=== PATIENT | female | born 1935 | race Caucasian/White ===

== ENCOUNTER → 2023-09-26 | Outpatient (CLI) | payer MEDICARE, SELFPAY ==
--- OUTSIDE RECORDS SUMMARY | 2023-09-26 17:38 | XMS RPT_ITS | CCD ---
Author Name Unknown Address [address] [place] [address] Organization [facility] Care Team Providers Care Audio Technician Name Role Phone No, Physician Primary Care Provider Unavailabl e Hellinger Edinson BAIG Primary Care Provider EDINSON CASANOVA Referring Unavailable HELEDINSON JARAMILLO Attending Unavailable EDINSON CASANOVA Primary Care Unavailable HELLINGEREDINSON Referring Unavailable HELLINGEREDINSON Attending Unavailable EDINSON CASANOVA Primary Care Unavailable HELLINGEREDINSON Referring Unavailable HELLINGEREDINSON Attending Unavailable EDINSON CASANOVA Primary Care Unavailable HELLINGEDINSON GARDINER Referring Unavailable HELLINGEREDINSON Attending Unavailable NILSLINGEREDINSON Primary Care Unavailable Hellinger Edinson BAIG Primary Care Provider Pending Provider Unavailable Unavailable Hellinger, Ms. Edinson Rivas Attending Unavail able Pending, Provider Primary Care Unavailable Hellinger, Ms. Edinson Rivas Attending Unavail able Pending, Provider Primary Care Unavailable Hellinger, Ms. Edinson Rivas Attending Unavail able Pending, Provider Primary Care Unavailable Hellinger, Ms. Edinson Rivas Attending Unavail able Pending, Provider Primary Care Unavailable Hellinger, Ms. Edinson Rivas Attending Unavail able Pending, Provider Primary Care Unavailable Hellinger, Ms. Edinson Rivas Attending Unavail able Pending, Provider Primary Care Unavailable Hellinger, Ms. Edinson Rivas Attending Unavail able Pending, Provider Primary Care Unavailable Hellinger, Ms. Edinson Rivas Attending Unavail able Pending, Provider Primary Care Unavailable Hellinger, Ms. Edinson Rivas Attending Unavail able Pending, Provider Primary Care Unavailable Pending, Provider Primary Care Unavailable Hellinger, Ms. Edinson Rivas Attending Unavail able Pending, Provider Primary Care Unavailable Hellinger, Ms. Edinson Rivas Attending Unavail able Hellinger, Ms. Edinson Rivas Attending Unavail able Pending, Provider Primary Care Unavailable Hellinger, Ms. Edinson Rivas Attending Unavail able Pending, Provider Primary Care Unavailable Hellinger, Ms. Edinson Rivas Attending Unavail able Pending, Provider Primary Care Unavailable Hellinger, Ms. Edinson Rivas Attending Unavail able Pending, Provider Primary Care Unavailable Pending, Provider Primary Care Unavailable Hellinger, Ms. Edinson Rivas Attending Unavail able Hellinger, Ms. Edinson Rivas Attending Unavail able Pending, Provider Primary Care Unavailable Hellinger, Ms. Edinson Rivas Attending Unavail able Pending, Provider Primary Care Unavailable Hellinger Edinson BAIG Primary Care Provider EDINSON CASANOVA Primary Care Unavailable ISAAC GALLEGO Attending Unavailab le EDINSON CASANOVA Primary Care Unavailable ROSARIO MAGAÑA Attending Unavailable SIRISHA CREWS Attending Unavailable EDINSON CASANOVA Primary Care Unavailable Medications Current Medications Medication Drug Class(es) Dates Sig (Normalized) Sig (Original) ascorbic acid 226 mg / cuprous oxide 0.8 mg / dl-alpha tocopheryl acetate 200 unt / lutein 5 mg / zinc oxide 34.8 mg oral capsule (2 sources) Vitamin C Start: 1 take 1 capsule by mouth twice daily vit N-B-pbyljk-zinc-lutein 226-90-0.8-5 mg cap Take 1 capsule by mouth 2 (two) times a day . 0 08/15/2011 Active aspirin 81 mg delayed release oral tablet (4 sources) Platelet Aggregation Inhibitor, Nonsteroidal Anti-inflammator y Drug Start: 6 aspirin 81 MG EC tablet Take by mouth . 0 10/21/2005 Active atorvastatin 20 mg oral tablet (5 sources) HMG-CoA Reductase Inhibitor take 1 tablet by mouth once daily atorvastatin (LIPITOR) 20 MG tablet Take 1 (one) tablet (20 mg total) by mouth daily . 0 Active docusate sodium 100 mg oral capsule (5 sources) take 1 capsule by mouth twice daily docusate sodium (COLACE) 100 MG capsule Take 1 (one) capsule (100 mg total) by mouth 2 (two) times a day . 0 Active hydroCHLOROthiazide 25 mg oral tablet (4 sources) Thiazide Diuretic Start: 1 take 1 tablet by mouth once daily hydroCHLOROthiazide (HYDRODIURIL) 25 MG tablet Take 1 (one) tablet (25 mg total) by mouth daily . 0 01/26/2021 Active lisinopril 20 mg oral tablet (5 sources) Angiotensin Converting Enzyme Inhibitor take 1 tablet by mouth once daily lisinopriL (PRINIVIL,ZESTRIL) 20 MG tablet Take 1 (one) tablet (20 mg total) by mouth daily . 0 Active lutein 10 mg oral tablet (4 sources) Start: 0 lutein 10 mg Tab Take by mouth . 0 12/07/2009 Active melatonin 1 mg oral tablet (3 sources) melatonin 1 mg T ab Take by mouth nightly . 0 Active metFORMIN hydrochloride 500 mg oral tablet (5 sources) Biguanide take 1 tablet by mouth twice daily metFORMIN (GLUCOPHAGE) 500 MG tablet Take 1 (one) tablet (500 mg total) by mouth 2 (two) times a day . 0 Active multivitamin with minerals tablet (5 sources) multivitamin wit h minerals tablet Take by mouth daily . 0 Active potassium gluconate 2.5 meq oral tablet (3 sources) potassium 99 mg Tab Take by mouth . 0 Active Problems Active Problems Problem Classification Problem Date Documented Da te Episodic/Chronic Cataract (5 sources) Bilateral cataracts; Translations: [Unspecified cataract] 03-21-2021 Chronic Diabetes mellitus with complications (19 sources) Polyneuropathy due to type 2 diabetes mellitus; Translations: [Type 2 diabetes mellitus with diabetic polyneuropathy] Onset: 09-05-2022 Chronic Diabetes mellitus without complication (7 sources) Diabetes mellitus; Translations: [Type 2 diabetes mellitus without complications] 03-21-2021 Chronic Mycoses (8 sources) Onychomycosis; Translations: [Tinea unguium] Episodic Other ear and sense organ disorders (5 sources) Decreased hearing ; Translations: [Unspecified hearing loss, unspecified ear] 03-21-2021 Chronic Other injuries and conditions due to external causes (2 sources) Foreign body in left ear, initial encounter; Translations: [Foreign body in left ear, initial encounter] Onset: 07-16-2023 Episodic Other nervous system disorders (5 sources) Peripheral nerve disease ; Translations: [Polyneuropathy, unspecified] 03-21-2021 Chronic Other nervous system disorders (15 sources) Abnormal gait; Translations: [Abnormality of gait] Episodic Other non-traumatic joint disorders (6 sources) Swelling of bilateral feet; Translations: [Effusion, right ankle] Episodic Other skin disorders (6 sources) Foot callus; Translations: [Corns and callosities] Episodic Other skin disorders (1 source) Trachyonychia; Translations: [Nail dystrophy] Episodic Other skin disorders (2 sources) Dystrophia unguium; Translations: [Nail dystrophy] 05-07-2023 Episodic Other upper respiratory disease (6 sources) Seasonal allergy; Translations: [Other seasonal allergic rhinitis] Chronic Peripheral and visceral atherosclerosis (6 sources) Peripheral vascular disease, unspecified; Translations: [Peripheral vascular disease, unspecified] Chronic Residual codes; unclassified (2 sources) Bilateral lower limb edema; Translations: [Localized edema] 05-07-2023 Episodic Rheumatoid arthritis and related disease (5 sources) Rheumatoid arthritis; Translations: [Rheumatoid arthritis, unspecified] 03-21-2021 Chronic Spondylosis; intervertebral disc disorders; other back problems (2 sources) Sacroiliitis, not elsewhere classified; Translations: [Spondylosis without myelopathy or radiculopathy, lumbar region] Onset: 01-05-2023 Chronic Spondylosis; intervertebral disc disorders; other back problems (9 sources) Backache; Translations: [Dorsalgia, unspecified] Onset: 01-05-2023 03-21-2021 Episodic Varicose veins of lower extremity (5 sources) Varicose veins of lower extremity; Translations: [Asymptomatic varicose veins of unspecified lower extremity] 03-21-2021 Episodic Past or Other Problems Problem Classification Problem Date Documented Date Episodic/Chronic Other nervous system disorders (1 source) Other abnormalities of gait and mobility; Translations: [Other abnormalities of gait and mobility] Onset: 09-12-2022 Episodic Unclassified (1 source) Nail Care Onset: 07-25-2023 Results Test Name Value Interpretation Reference Range Facil ity Vital Signs Date Time Vital Sign Value Performing Clinician Facshanice lity 07-25-2023 10:28-0400 Diastolic blood pressure 65 mm[Hg] Rosario Magaña RECONCILIATION CLERK Work Phone: [facility] 07-25-2023 10:28-0400 Heart rate 69 /min Rosario Magaña RECONCILIATION CLERK Work Phone: [facility] 07-25-2023 10:28-0400 Systolic blood pressure 124 mm[Hg] Rosario Domka RECONCILIATION CLERK Work Phone: [facility] 07-25-2023 10:24-0400 Body temperature 98.4 [degF] Rosario Agustínka RECONCILIATION CLERK Work Phone: [facility] 04-24-2023 10:49-0400 Body temperature 97.5 [degF] Sirisha Jose David DPM Work Phone: [facility] 04-24-2023 10:49-0400 Diastolic blood pressure 67 mm[Hg] Sirisha Jose David DPM Work Phone: [facility] 04-24-2023 10:49-0400 Heart rate 61 /min Sirisha Jose David DPM Work Phone: [facility] 04-24-2023 10:49-0400 Systolic blood pressure 111 mm[Hg] Sirisha Pleasant Dale DPM Work Phone: [facility] 04-05-2021 14:44-0400 Body height 167.6 cm Sirisha Ple[place] Dale DPM Work Phone: [facility] 04-05-2021 14:44-0400 Body mass index (BMI) [Ratio] 32.28 kg/m2 Sirisha Jose David DPM Work Phone: [facility] 04-05-2021 14:44-0400 Body temperature 97 [degF] Sirisha Jose David DPM Work Phone: [facility] 04-05-2021 14:44-0400 Body weight 90.72 kg Sirisha Ple[place] Dale DPM Work Phone: [facility] 04-05-2021 14:44-0400 Diastolic blood pressure 56 mm[Hg] Sirisha Jose David DPM Work Phone: [facility] 04-05-2021 14:44-0400 Heart rate 73 /min Sirisha Pleasant Dale DPM Work Phone: [facility] 04-05-2021 14:44-0400 Systolic blood pressure 111 mm[Hg] Sirisha Crews DPM Work Phone: [facility] Encounters Encounter Date Encounter Type Care Provider Facility Start: 07-25-2023 End: 07-25-2023 ambulatory EDINSON CASANOVA [facility] Start: 07-25-2023 End: 07-25-2023 Patient encounter procedure Rosario Magaña RECONCILIATION CLERK Work Phone: [facility] Procedures Date Procedure Procedure Detail Performing Clinician Start: 04-24-2023 3 comp foot exam completed Sirisha Crews DPM Work Phone: Start: 04-05-2021 3 comp foot exam completed Edinson Casanova RECONCILIATION CLERK Work Phone: Plan of Treatment Date Care Activity Detail Author Start: 04-24-2024 Diabetic foot examination Foot Exam [facility] Start: 10-24-2023 End: 10-24-2023 Patient encounter procedure 10/24/2023 11:00 AM EST Office Visit [facility] [address] [place] [address] Sirisha Crews DPM [address] [place] [address] [facility] Start: 07-25-2023 End: 07-25-2023 Patient encounter procedure 07/25/2023 10:30 AM EDT Office Visit [facility] [address] [place] [address] Rosario Magaña CNP [address] [place] [address] [facility] Start: 05-26-2023 Influenza vaccination Sequential Influenza Vaccine (#1) [facility] Start: 09-12-2022 REINIER, Provider: Aydee Whaley, Status: Pen, Time: 1:15 PM REINIER, Provider: Aydee Whaley, Status: Pen, Time: 1:15 PM [facility] Work Phone: Start: 09-05-2022 [email or web address], Provider: Laila Nath, Status: Pen, Time: 1:15 PM PTFUADULT4, Provider: Laila Nath, Status: Pen, Time: 1:15 PM [facility] Work Phone: Start: 09-02-2022 PTFUADULT4, Provider: Laila Nath, Status: Pen, Time: 1:15 PM PTFUADULT4, Provider: Laila Nath, Status: Pen, Time: 1:15 PM [facility] Work Phone: Start: 08-29-2022 PTFUADULT4, Provider: Laila Nath, Status: Pen, Time: 11:30 AM PTFUADULT4, Provider: Laila Nath, Status: Pen, Time: 11:30 AM [facility] Work Phone: Start: 08-26-2022 PTFUADULT4, Provider: Laila Nath, Status: Pen, Time: 11:30 AM PTFUADULT4, Provider: Laila Nath, Status: Pen, Time: 11:30 AM [facility] Work Phone: Start: 08-10-2022 PTFUADULT4, Provider: Laila Nath, Status: Pen, Time: 2:00 PM PTFUADULT4, Provider: Laila Nath, Status: Pen, Time: 2:00 PM [facility] Work Phone: Start: 08-08-2022 PTRECHADUL, Provider: Aydee Whaley, Status: Pen, Time: 2:00 PM PTRECHADUL, Provider: Trosterud,Aydee, Status: Pen, Time: 2:00 PM [facility] Work Phone: Start: 08-03-2022 PTFUADULT4, Provider: Laila Nath, Status: Pen, Time: 1:15 PM PTFUADULT4, Provider: Laila Nath, Status: Pen, Time: 1:15 PM [facility] Work Phone: Start: 08-01-2022 PTFUADULT4, Provider: Laila Nath, Status: Pen, Time: 1:15 PM PTFUADULT4, Provider: aLila Nath, Status: Pen, Time: 1:15 PM [facility] Work Phone: Start: 07-11-2022 PTRECHADUL, Provider: Aydee Whaley, Status: Pen, Time: 2:30 PM PTRECHADUL, Provider: Aydee Whaley, Status: Pen, Time: 2:30 PM [facility] Work Phone: Start: 07-04-2022 PTRECHECKA, Provider: Aydee Whaley, Status: Pen, Time: 10:45 AM PTRECHECKA, Provider: Aydee Whaley, Status: Pen, Time: 10:45 AM [facility] Work Phone: Start: 06-29-2022 PTFUADULT4, Provider: Laila Nath, Status: Pen, Time: 10:45 AM PTFUADULT4, Provider: Laila Nath, Status: Pen, Time: 10:45 AM [facility] Work Phone: Start: 06-29-2022 PTFUADULT4, Provider: Anita Adamson, Status: Pen, Time: 10:45 AM PTFUADULT4, Provider: Anita Adamson, Status: Pen, Time: 10:45 AM [facility] Work Phone: Start: 06-27-2022 PTFUADULT4, Provider: Laila Nath, Status: Pen, Time: 10:45 AM PTFUADULT4, Provider: Laila Nath, Status: Pen, Time: 10:45 AM [facility] Work Phone: Start: 06-22-2022 PTFUADULT4, Provider: Laila Nath, Status: Pen, Time: 10:45 AM PTFUADULT4, Provider: Laila Nath, Status: Pen, Time: 10:45 AM [facility] Work Phone: Start: 06-20-2022 PTFUADULT4, Provider: Laila Nath, Status: Pen, Time: 10:45 AM PTFUADULT4, Provider: Laila Nath, Status: Pen, Time: 10:45 AM [facility] Work Phone: Start: 06-15-2022 PTFUADULT4, Provider: Anita Adamson, Status: Pen, Time: 10:45 AM PTFUADULT4, Provider: Anita Adamson, Status: Pen, Time: 10:45 AM [facility] Work Phone: Start: 06-13-2022 PTFUADULT4, Provider: Laila Nath, Status: Pen, Time: 10:45 AM PTFUADULT4, Provider: Laila Nath, Status: Pen, Time: 10:45 AM [facility] Work Phone: Start: 05-26-2022 Influenza vaccination Sequential Influenza Vaccine (Season Ended) [facility] Start: 04-05-2022 Diabetic foot examination Foot Exam [facility] Start: 05-26-2021 Influenza vaccination [facility] Start: 04-05-2021 End: 04-05-2021 Patient encounter procedure 04/05/2021 Office Visit Podiatry Sirisha Crews DPM [address] [place] [address] [phone] [facility] Start: 11-11-2020 COVID-19 Vaccine (2 - Moderna 2-dose series) COVID-19 Vaccine (2 - Moderna 2-dose series) [facility] Start: 11-11-2020 COVID-19 Vaccine (2 - Moderna series) COVID-19 Vaccine (2 - Moderna series) [facility] Start: 05-22-2016 Tetanus vaccination Tetanus: Every 10yrs [facility] Start: 2001 Fall risk assessment Falls Risk Assessment [facility] Start: 2001 Pneumococcal Vaccine: Age 65+ (1 of 1 - PPSV23) Pneumococcal Vaccine: Age 65+ (1 of 1 - PPSV23) [facility] Start: 1986 Administration of herpes zoster vaccine Zoster Vaccines (1 of 2) [facility] Start: 1948 COVID-19 Vaccine (1) COVID-19 Vaccine (1) [facility] Start: 1948 Depression screening using PHQ-9 (Patient Health Questionnaire 9) score [facility] Start: 1946 Diabetic foot examination Foot Exam [facility] Start: 1946 Glaucoma screening Diabetic Eye Exam [facility] Start: 1946 Microalbumin measurement, urine, quantitative Urine Microalbumin [facility] Start: 1946 Ophthalmic examination and evaluation Ophthalmology Exam [facility] Start: 1946 Urine screening for protein Urine Microalbumin [facility] Start: 1942 Pneumococcal Vaccine: Age 65+ (1 of 2 - PPSV23) Pneumococcal Vaccine: Age 65+ (1 of 2 - PPSV23) [facility] Start: 1939 History and physical examination, annual for health maintenance Wellness Visit [facility] Start: 1936 Hemoglobin A1c measurement A1C [facility] Start: 1936 Screening for osteoporosis Dexa Scan [facility] Start: 1936 Tetanus vaccination Tetanus: Every 10yrs [facility] Payers Date Payer Category Payer Medicare [employer] [place] [place] [facility] AETNA MEDICARE PLAN (PPO) [id number] 2015-Present [id number] 2015 Medicare [id number] 2015 Medicare [id number] 2015 Private Health Insurance [id number] 1936 Unknown [id number] 2.16.840.1.155665.3.579.2.9 03 1936 Unknown [id number] 2.16.840.1.844621.3.579.2.9 03 1936 Unknown [id number] 2.16.840.1.290696.3.579.2.9 03 1936 Unknown [id number] 2.16.840.1.909569.3.579.2.9 03 1936 Unknown [id number] 2.16.840.1.056723.3.579.2.1 069 1936 Unknown [id number] 2.16.840.1.526391.3.579.2.1 069 1936 Unknown [id number] 2.16.840.1.981165.3.579.2.1 069 1936 Unknown [id number] 2.16.840.1.489030.3.579.2.1 069 1936 Unknown [id number] 2.16.840.1.665644.3.579.2.1 069 1936 Unknown [id number] 2.16.840.1.894672.3.579.2.1 069 1936 Unknown [id number] 2.16.840.1.067294.3.579.2.1 069 1936 Unknown [id number] 2.16.840.1.945823.3.579.2.1 069 1936 Unknown [id number] 2.16.840.1.050924.3.579.2.1 069 1936 Unknown [id number] 2.16.840.1.763106.3.579.2.1 069 1936 Unknown [id number] 2.16.840.1.849014.3.579.2.1 069 1936 Unknown [id number] 2.16.840.1.685757.3.579.2.1 9 1936 Unknown [id number] 2.16.840.1.303616.3.579.2.1 06 1936 Unknown [id number] 2.16.840.1.566171.3.579.2.1 069 1936 Unknown [id number] 2.16.840.1.465466.3.579.2.1 06 1936 Unknown [id number] 2.16.840.1.374118.3.579.2.1 069 1936 Unknown [id number] 2.16.840.1.714409.3.579.2.1 069 1936 Unknown [id number] 2.16.840.1.333564.3.579.2.1 9 1936 Unknown [id number] 2.16.840.1.886150.3.579.2.9 02 1936 Unknown [id number] 2.16.840.1.827223.3.579.2.9 03 1936 Unknown [id number] 2.16.840.1.091487.3.579.2.9 03 Unknown [employer] Social History Date Type Detail Facility Start: 03-21-2021 Tobacco smoking status OHIS Unknown if ever smoked [facility] Start: 1935 [facility] Start: 04-05-2021 Tobacco smoking status NHIS Never sm oker [facility] Start: 04-05-2021 Tobacco use and exposure Never used [facility] Start: 04-05-2021 End: 07-29-2023 Alcohol intake Not Asked [facility] Start: 04-05-2021 Alcohol Comment once or twice a yr [facility] Exposure to SARS-CoV-2 (event) Not sure [facility] Start: 04-05-2021 End: 05-07-2023 Cigarette pack-years [facility] Start: 04-24-2023 End: 05-07-2023 Tobacco use panel [facility] Clinical Notes 04-05-2021 to 07-25-2023 Rosario Magaña CNP - 07/25/2023 10:30 AM EDTPatient InstructionsSirisha Crews DPM - 04/24/2023 10:30 AM EDSirisha Adame DPM - 04/05/2021 2:45 PM EDT Note Date & Type Note Facility 07-25-2023 History of Presen t illness Narrative Rosario Magaña CNP Patient Name: Ananya Alexander. . Date of : 1935, 88 y.o.. Gender: female. Subjective: Patient is a pleasant 87-year-old female who presents to clinic for painful toenails that are elongated, thickened, dystrophic and mycotic. Patient is unable to trim toenails herself. She also has some pincer nail morphology making nail debridement difficult for her children. No hemoglobin A1c could be found on her chart. No other pedal complaints at this time. Denies fevers, chills, nausea, vomiting, chest pain, shortness of breath, or any other constitutional symptoms. Physical Examination: BP 124/65 (BP Location: Right arm, Patient Position: Sitting, BP Cuff Size: Adult) Pulse 69 Temp 98.4 F (36.9 C) (Infrared) General Appearance: Alert, cooperative, no distress, appears stated age. Podiatric Exam Vascular: DP and PT pulses are palpable 2/4. Capillary refill time is brisk to distal digits. Skin temperature is warm to warm from proximal tibial tuberosity to distal digit.+1 pitting edema noted to bilateral lower extremities. Neurological: Gross sensation is intact. Vibratory sensation is diminished. Protective sensation is diminished using the Ripley Shellie monofilament Dermatologic: Nails 1 through 10 are elongated, thickened, and dystrophic. No open wounds or ulcerations Interdigital spaces are clean dry and intact. Musculoskeletal: Patient able to wiggle digits. Ankle joint range of motion is intact. Muscle strength is 5/5 to dorsiflexors, plantar flexors, inverters and everters. Compartments soft and compressible. No calf pain Assessment: 1. OM (onychomycosis) 2. Diabetic peripheral neuropathy (HCC) 3. Bilateral leg edema 4. Onychodystrophy Imaging: None obtained at this time. Plan: Patient was seen and evaluated. Discussed all clinical findings. Patient has onychomycosis of nails x 2 and onychodystrophy x8 which require mechanical debridement. Consent was obtained prior to debridement of all toenails on the right and left foot using podiatric nail nippers down to appropriate thickness and length. Patient expressed pain relief following the procedure. Patient qualifies for nail care due to at risk foot criteria based on Q9 Modifier secondary to diabetic peripheral neuropathy. Encouraged to perform frequent foot checks and wear good supportive shoes. All questions were answered to patient's satisfaction. Patient understands to call with any questions or concerns. Follow-up in 3 months for at risk foot care. documented in this encounter [facility] 04-24-2023 Instructions Sirisha Crews DPM - 04/24/2023 11:02 AM EDT Images from the original note were not included. Compression socks 8-15 mmHg Sunscreen 50 SPF Sirisha Crews DPM, MS Podiatric Physician & Surgeon documented in this encounter [facility] 04-24-2023 History of Presen t illness Narrative Images from the original note were not included. Sirisha Crews DPM Patient Name: Ananya Alexander. . Date of : 1935, 87 y.o.. Gender: female. Subjective: Patient is a pleasant 87-year-old female who presents to clinic for comprehensive diabetic foot examination. Patient states [place]. She is also complaining of swelling to her feet when she flies. No other pedal complaints at this time. Denies fevers, chills, nausea, vomiting, chest pain, shortness of breath, or any other constitutional symptoms. Physical Examination: BP 111/67 (BP Location: Left arm, Patient Position: Sitting, BP Cuff Size: Adult) Pulse 61 Temp 97.5 F (36.4 C) (Infrared) General Appearance: Alert, cooperative, no distress, appears stated age. Podiatric Exam Vascular: DP and PT pulses are palpable 2/4. Capillary refill time is brisk to distal digits. Skin temperature is warm to warm from proximal tibial tuberosity to distal digit.+1 pitting edema noted to bilateral lower extremities. Neurological: Gross sensation is intact. Vibratory sensation is diminished. Protective sensation is diminished using the Ripley Shellie monofilament Dermatologic: Nails 1 through 10 are elongated, thickened, and dystrophic. No open wounds or ulcerations Interdigital spaces are clean dry and intact. Musculoskeletal: Patient able to wiggle digits. Ankle joint range of motion is intact. Muscle strength is 5/5 to dorsiflexors, plantar flexors, inverters and everters. Compartments soft and compressible. No calf pain Assessment: 1. Comprehensive diabetic foot examination, type 2 DM, encounter for ([facility]) 2. Diabetic peripheral neuropathy ([facility]) 3. OM (onychomycosis) 4. Onychodystrophy Imaging: None obtained at this time. Plan: Patient was seen and evaluated. Discussed all clinical findings. A comprehensive diabetic foot examination was performed. Patient is doing well and has no open wounds. No signs of infection. Patient is to continue to follow-up with his primary care physician every 6 months. Patient was instructed to check his feet once daily and to wear good supportive shoes. Patient has onychomycosis of nails x 2 and onychodystrophy x8 which require mechanical debridement. Consent was obtained prior to debridement of all toenails on the right and left foot using podiatric nail nippers down to appropriate thickness and length. Patient expressed pain relief following the procedure. Patient qualifies for nail care due to at risk foot criteria based on Q9 Modifier secondary to diabetic peripheral neuropathy. Moreover, discussed importance of compression socks or Isreal bandage when traveling for edema control. Patient should applied compression socks in the morning and take them off at nighttime. All questions were answered to patient satisfaction. Patient understands to call with any questions or concerns. Follow-up in 3 months for at risk foot care. Sirisha Crews DPM, MS Podiatric Physician & Surgeon documented in this encounter [facility] 04-05-2021 History of Presen t illness Narrative Images from the original note were not included. NEW Patient Visit Sirisha Crews DPM Patient Name: Ananya Alexander. . Date of : 1935, 85 y.o.. Gender: female. Subjective: Patient is a pleasant 85-year-old female who presents to clinic for a comprehensive diabetic foot examination. Patient admits to numbness and tingling on the plantar aspects of her feet. She denies taking any neuropathic medication such as gabapentin. Denies any recent trauma or injury. She is also complaining of brittle and elongated toenails that she has difficulty cutting on her own. No other pedal complaints at this time. Denies fevers, chills, nausea, vomiting, chest pain, shortness of breath, or any other constitutional symptoms. Physical Examination: BP (!) 111/56 (BP Location: Right arm) Pulse 73 Temp 97 F (36.1 C) (Infrared) Ht 5' 6 Wt 90.7 kg (200 lb) BMI 32.28 kg/m General Appearance: Alert, cooperative, no distress, appears stated age. Podiatric Exam Vascular: DP and PT pulses are palpable 2/4. Capillary refill time is brisk to distal digits. Skin temperature is warm to warm from proximal tibial tuberosity to distal digit. Neurological: Gross sensation is intact. Vibratory sensation is diminished. Protective sensation is intact Dermatologic: Nails 1 through 10 are elongated, thin, and within normal limits. No open wounds or ulcerations Interdigital spaces are clean dry and intact. Musculoskeletal: Patient able to wiggle digits. Ankle joint range of motion is intact. Muscle strength is 5/5 to dorsiflexors, plantar flexors, inverters and everters. Compartments soft and compressible. No calf pain Assessment: 1. Comprehensive diabetic foot examination, type 2 DM, encounter for (HCC) 2. Brittle nails Imaging: None obtained at this time. Plan: Patient was seen and evaluated. Discussed all clinical findings. A comprehensive diabetic foot examination was performed. Patient has early signs for diabetic neuropathy as she has failed the vibratory test. Recommended the patient follows up with her primary care physician for a prescription of gabapentin. Regarding her thin number of toenails, I provided patient with courtesy service of debridement of all toenails down to appropriate length and thickness. Patient unfortunately does not qualify for at risk foot care secondary to intact protective sensation and intact palpable pulses. Patient understand that she will have to pay [id number] for future debridement of toenails. All questions were answered to patient satisfaction. Patient understands to call with any questions or concerns. Follow-up in 3 months for nail care. Sirisha Crews DPM, MS Podiatric Physician & Surgeon documented in this encounter [facility] Comprehensive diabetic foot examination, type 2 DM, encounter for (HCC)- Primary Brittle nails Other specified disease of nail [facility] Diagnosis Diabetic polyneuropathy associated with type 2 diabetes mellitus (HCC)- Primary [facility] Diagnosis Comprehensive diabetic foot examination, type 2 DM, encounter for (HCC)- Primary Diabetic peripheral neuropathy (HCC) Type II or unspecified type diabetes mellitus with neurological manifestations, not stated as uncontrolled Bilateral leg edema Edema OM (onychomycosis) Dermatophytosis of nail Onychodystrophy Other specified disease of nail [facility] Diagnosis OM (onychomycosis)- Primary Dermatophytosis of nail Diabetic peripheral neuropathy (HCC) Type II or unspecified type diabetes mellitus with neurological manifestations, not stated as uncontrolled Bilateral leg edema Edema Onychodystrophy Other specified disease of nail [facility]* Ms. Alexander arrives to outpatient PT with s/s consistent with c/o imbalance. Pt presents with the following impairments: impaired balance, impaired gait, LE weakness. These impairments contribute to difficulty in activity limitations and participation restrictions including walking, ADLs, stair negotiation, carrying laundry basket. The pt will benefit from skilled PT services 2x/week for 4 weeks to a ddress the above stated impairments and functional limitations to maximize participation and ease in household and social related activities. The pt has a good prognosis when considering positive factors including motivation and activity level with barriers such as neck and back pain. The pt verbalized understanding and agreement to goals and POC. Thank you for this referral and please call [phone] with any questions or concerns. * Clinical Presentation: Stable and/or uncomplicated characteristics. * Level of Complexity: low * Problem List: activity limitations, ADLs/IADLs/self care skills, balance, decreased functional level, decreased knowledge of HEP, gait/locomotion, participation restrictions, strength and transfers. [facility] Work Phone: History of Present illness NarrativePatient identified by name and date of . Patient was able to progress with balance and strengthening this date with minimal rest breaks. She demonstrated decreased LOB this date and was able to decrease UE support. [facility] Work Phone: History of Present illness NarrativePatient identified by name and date of . Patient demonstrated increased LOB this date. She demonstrated increased fatigue and required several seated rest breaks. She required cues to decrease with external rotation with side stepping. [facility] Work Phone: History of Present illness Narrative* Patient had difficulty with standing PRE's this date d/t knee pain. * Mild sway with balance on Airex with NBOS. * Needs to keep hands close to the railing during tandem stance on airex d/t instability. * Patient had Mod sway with head nods on airex and need to place hands on railing and min A from therapist. * STS 30 second test: 11 reps with fair control and no UE assist. [facility] Work Phone: History of Present illness Narrative* Patient got dizzy with balance with nods and with side stepping today. * Needed CGA during gait back to clinic room from where side steps were completed. * Continues with mild sway with balance activities. * Difficulty with BOSU running man on the L > R. [facility] Work Phone: History of Present illness Narrative* Patient arrived very fatigued this date. * Completed bike and needed to take rest breaks during and after. * Patient needed many standing and seated rest breaks. * Standing PRE's were completed with gait belt in // bars. * Mod sway with static standing. * Held airex with standing exercises today d/t fatigue and decreased stability. [facility] Work Phone: History of Present illness Narrative* Patient has difficulty with all exercises secondary to weakness and fatigue. * Needed to take frequent rest breaks between each set of reps. * Posterior trunk rolling with S/L hip ABD d/t compensations with weakness on the L > R. * Difficulty with bridges + Marches d/t hip and LE weakness, was able to complete [address] [facility] Work Phone: History of Present illness Narrative* Increased difficulty on the R with SLR in supine. Patient was unable to fully lift the R LE by the end of her second set of reps. * Mod sway with balance on Airex. * Patient is very guarded with gait with use of cane and has tendency to veer side to side when walking instead of straight forward path. * Patient was very fatigued by end of session today. [facility] [place] Work Phone: History of Present illness Narrative* Patient has difficulty with all exercises secondary to weakness and fatigue. * Needed to take frequent rest breaks between each set of reps. * Posterior trunk rolling with S/L hip ABD d/t compensations with weakness on the L > R. * Difficulty with bridges + Marches d/t hip and LE weakness, was able to complete 1 set. [facility] Work Phone: History of Present illness Narrative* Improved balance with standing PRE's on the airex but still does need to use both hands to steady self. * Used cane in clinic for stability d/t fatigue from exercises. [facility] Work Phone: History of Present illness Narrative* Pt confirmed via and Full Name. * Pt reassessed this date by supervising PT with improvements noted in MMT in BLE's and over all functional level. She does present with lingering weakness in Right hip, specifically hip flexor compared to Left side, as well as presenting with significant leg length discrepancy with RLE shorter than LLE, which was corrected with MET this date. spent much time edu pt on prognosis and POC and pt willcheck back with PT in 1-2 weeks to discuss if further skilled PT is needed at that time or not after adjusting pelvis with MET this date. Pt reported good understanding of all edu and updates to HEP made this date and is appropriate to attempt independence with HEP and symptom management at this time. [facility] Work Phone: Reason for visit Narrative* Initial Evaluation . Dx: E11.42. * Referred by: Edinson Casanova [facility] Work Phone: Summary Purpose Family History No Family History Records FoundNo Family History Records FoundNo Family History Records FoundNo Family History Records FoundNo Family History Records FoundNo Family History Records Found Advance Directives Documents on File Type Date Recorded Patient Data Center Operator Expl anation Advance Directives and Livin g Will 03/18/2021 12:00 AM Documents on File Type Date Recorded Patient Data Center Operator Expl anation Advance Directives and Living Will Documents on File Type Date Recorded Patient Data Center Operator Expl anation Advance Directives and Livin g Will 07/16/2023 11:49 AM Reason for Referral Specialty Diagnoses / Procedures Referred By Rhea arrington Referred To Contact Rehabilitation Diagnoses Diabetic polyneuropathy associated with type 2 diabetes mellitus (HCC) Edinson Casanova, RECONCILIATION CLERK [address] [place] [address] [facility] [address] [place] [address] Referral ID Status Reason Start Date Expiration Date V isits Requested Visits Authorized [id number] Pending Review 03/23/2022 03/23/2023 1 1 Additional Source Comments INFORMATION SOURCE (unrecogn ized section and content) DATE CREATED AUTHOR AUTHOR'S ORGANIZ ATION 06/26/2021 [facility] DATE CREATED AUTHOR AUTHOR'S ORGANIZ ATION 09/16/2022 [employer] DATE CREATED AUTHOR AUTHOR'S ORGANIZ ATION 01/09/2023 [facility] DATE CREATED AUTHOR AUTHOR'S ORGANIZ ATION 07/23/[address] [facility] DATE CREATED AUTHOR AUTHOR'S ORGANIZ ATION 07/26/2023 [facility] Reason for Visit (unrecogniz ed section and content) Reason Comments Nail Care Diabetic nail care. Patient [place]t on the beach 2[place]3 weeks ago. Patient complains of swelling when she flys. Reason Comments Nail Care Diabetic nail care. She has not checked her blood sugar. She has been having leg numbness. Care Teams (unrecognized sec tion and content) Audio Technician Relationship Specialty Start Date End Date Edinson Casanova CNP [address] [place] [address] PCP - General Nurse Practitioner 04/05/21 Audio Technician Relationship Specialty Start Date End Date Edinson Casanova CNP [address] [place] [address] PCP - General Nurse Practitioner 04/05/21 FOR RECORDS PERTAINING TO PATIENTS WHO ARE OR HAVE BEEN ENROLLED IN A CHEMICAL DEPENDENCY/SUBSTANCEABUSE PROGRAM, SOME INFORMATION MAY BE OMITTED. This clinical summary was aggregated from multiple sources. Caution should be exercised in using it in the provision of clinical care. This summary normalizes information from multiple sources, and as a consequence, information in this document may materially change the coding, format and clinical context of patient data. In addition, data may be omitted in some cases. CLINICAL DECISIONS SHOULD BE BASED ON THE PRIMARY CLINICAL RECORDS. [employer] [facility]. provides no warranty or guarantee of the accuracy or completeness of information in this document.
[2023-09-26 17:45] LABS: Absolute Lymphocyte Count 1.29 X10^3/uL (0.83-4.51); Absolute Neutrophil Count 4.3 X10^3/uL (2.0-7.7); Basophil# 0.05 X10^3/uL; Basophil% 0.8 % (0-1); Eosinophil# 0.16 X10^3/uL; Eosinophils% 2.5 % (0-5); Hematocrit 28.8 % (37-47); Hemoglobin 8.6 g/dL (12.0-15.0); Lymphocyte # 1.29 X10^3/ul (0.83-4.51); Mean Corp Hgb Conc 29.9 g/dL (32-36); Mean Corpuscular Hgb 30.5 pg (27.0-32.0); Mean Corpuscular Volume 102.1 fL (81-99); Mean Platelet Vol. 10.8 fl (6.2-12.0); Monocyte% 9.3 % (0-10); NRBC Flagged by Analyzer 0 % (0-5); Neutrophil # 4.31 X10^3/uL (2.7-7.7); Neutrophil % 66.9 % (47-70); Platelet Count 272 K/mm3 (150-450); RBC Distribution Width CV 13.5 % (11.6-14.6); Red Blood Count 2.82 M/mm3 (4.2-5.4); White Blood Count 6.4 K/mm3 (4.4-11.0)
[2023-09-26 18:03] LABS: Vitamin B12 401 pg/mL (211-911)
[2023-09-26 18:07] LABS: Hemoglobin A1c 5.5 % (3.8-5.6)
[2023-09-26 18:11] LABS: AST(SGOT) 39 U/L (15-37); Alanine Aminotransfer ALT/SGPT 44 U/L (13-56); Albumin, Serum 3.3 g/dL (3.2-5.0); Alkaline Phosphatase 92 U/L (45-117); Anion Gap 6 (5-15); BUN 26 mg/dL (7-18); BUN/Creat Ratio 12.6 RATIO (10-20); Calcium,Total 8.6 mg/dL (8.5-10.1); Chloride 113 mmol/L (98-107); Creatinine, Serum 2.07 mg/dL (0.55-1.02); EST Glomerular Filtration Rate 24 mL/min (>60); Est Glom Filt Rate - Afr Amer 29 mL/min (>60); Globulin 3.2 g/dL (2.2-4.2); Glucose 105 mg/dL (74-106); Potassium 5.1 mmol/L (3.5-5.1); Protein, Total 6.5 g/dL (6.4-8.2); Sodium Level 143 mmol/L (136-145); Thyroid Stim Hormone (TSH) 4.11 uIU/mL (0.358-3.74)
[2023-09-27 08:43] LABS: Ferritin 82 ng/mL (8-252); Iron 36 ug/dL (50-170); LDH 229 U/L (84-246)
[2023-09-28 14:09] LABS: PROEL- A/G Ratio 1.2 (0.7-1.7); PROEL- Albumin 3.1 g/dL (2.9-4.4); PROEL- Alpha-1 Globulin 0.3 g/dL (0.0-0.4); PROEL- Beta Globulin 0.8 g/dL (0.7-1.3); PROEL- Gamma Globulin 0.4 g/dL (0.4-1.8); PROEL- Globulin, Total 2.6 g/dL (2.2-3.9); PROEL- TOTAL PROTEIN 5.7 g/dL (6.0-8.5); PROEL-M-Spike Not Observed g/dL (Not Observed)
== END | disposition home or self-care (01) ==
PROVIDERS: PCP Family Medicine; Visit Provider Family Medicine
DX: I12.9 Hypertensive chronic kidney disease with stage 1 through stage 4 chronic kidney disease, or unspecified chronic kidney disease (principal); E11.22 Type 2 diabetes mellitus with diabetic chronic kidney disease; E11.29 Type 2 diabetes mellitus with other diabetic kidney complication; E11.40 Type 2 diabetes mellitus with diabetic neuropathy, unspecified; N18.31 Chronic kidney disease, stage 3a; D64.9 Anemia, unspecified; G62.9 Polyneuropathy, unspecified
CPT/HCPCS: 36415; 80053; 82607; 82728; 83036; 83540; 83615; 84165; 84443; 85025

== ENCOUNTER → 2023-10-30 | Outpatient (CLI) | payer MEDICARE, SELFPAY ==
--- OUTSIDE RECORDS SUMMARY | 2023-10-30 16:47 | XMS RPT_ITS | CCD ---
Author Name Unknown Address [address] [place] [address] Organization [facility] Care Team Providers Care Vice President Network Name Role Phone No, Physician Primary Care [...] Primary Care Unavailable ISAAC GALLEGO Attending Unavailab SIRISHA Cornejo Attending Unavailable EDINSON CASANOVA Primary Care Unavailable EDINSON CASANOVA Primary Care Unavailable ROSARIO MAGAÑA Attending Unavailable EDINSON CASANOVA Primary Care Unavailable SIRISHA CREWS Attending Unavailable Medications Current Medications Medication Drug Class(es) Dates Sig (Normalized) Sig (Original) ascorbic acid 226 mg / cuprous oxide 0.8 mg / dl-alpha tocopheryl acetate 200 unt / lutein 5 mg / zinc oxide 34.8 mg oral capsule (2 sources) Vitamin C Start: 1 take 1 capsule by mouth twice daily vit H-U-nujeoz-zinc-lutein 226-90-0.8-5 mg cap Take 1 capsule by [...] Episodic Unclassified (1 source) Nail Care Onset: 10-24-2023 Results Test Name Value Interpretation Reference Range Facil ity Vital Signs Date Time Vital Sign Value Performing Clinician Faci lity 07-25-2023 10:28-0400 Diastolic blood pressure 65 mm[Hg] Rosario Magaña DIRECTOR OF PLANNING Work Phone: [facility] 07-25-2023 10:28-0400 Heart rate 69 /min Rosario Agustínka DIRECTOR OF PLANNING Work Phone: [facility] 07-25-2023 10:28-0400 Systolic blood pressure 124 mm[Hg] Rosario Domka DIRECTOR OF PLANNING Work Phone: [facility] 07-25-2023 10:24-0400 Body temperature 98.4 [degF] Rosario Domka DIRECTOR OF PLANNING Work Phone: [facility] 04-24-2023 10:49-0400 Body temperature 97.5 [degF] Sirisha Jose David DPM Work Phone: [facility] 04-24-2023 10:49-0400 Diastolic blood pressure 67 mm[Hg] Sirisha Jose David DPM Work Phone: [facility] 04-24-2023 10:49-0400 Heart rate 61 /min Sirisha Jose David DPM Work Phone: [facility] 04-24-2023 10:49-0400 Systolic blood pressure 111 mm[Hg] Sirisha College Place DPM Work Phone: [facility] 04-05-2021 14:44-0400 Body height 167.[address] DPM Work Phone: [facility] 04-05-2021 14:44-0400 Body mass index (BMI) [Ratio] 32.28 kg/m2 Sirisha Jose David DPM Work Phone: [facility] 04-05-2021 14:44-0400 Body temperature 97 [degF] Sirisha Jose David DPM Work Phone: [facility] 04-05-2021 14:44-0400 Body weight 90.72 kg Sirisha Jose David DPM Work Phone: [facility] 04-05-2021 14:44-0400 Diastolic blood pressure 56 mm[Hg] Sirisha [address] DPM Work Phone: [facility] 04-05-2021 14:44-0400 Heart rate 73 /min Sirisha Molinar DPM Work Phone: [facility] 04-05-2021 [id number] Systolic blood pressure 111 mm[Hg] Sirisha Crews DPM Work Phone: [facility] Encounters Encounter Date Encounter Type Care Provider Facility Start: 10-24-2023 End: 10-24-2023 ambulatory SIRISHA CREWS [facility] Start: 07-25-2023 End: 07-25-2023 ambulatory EDINSON CASANOVA [facility] Start: 07-25-2023 End: 07-25-2023 Patient encounter procedure Rosario Magaña CNP Work Phone: [facility] Physician [facility] Procedures Date Procedure Procedure Detail Performing Clinician Start: 04-24-2023 3 comp foot exam completed Sirisha Crews DPM Work Phone: Start: 04-05-2021 3 comp foot exam completed Edinsno Casanova DIRECTOR OF PLANNING Work Phone: Plan of Treatment Date Care Activity Detail Author Start: 04-24-2024 Diabetic foot examination Foot Exam [facility] Start: 10-24-2023 End: 10-24-2023 Patient encounter procedure 10/24/2023 11:00 AM EST Office Visit [facility] Physician [facility] [address] [place] [phone] Sirisha Crews, DPM [address] [place] [address] [facility] Physician [facility] Start: 07-25-2023 End: 07-25-2023 Patient encounter procedure 07/25/2023 10:30 AM EDT Office Visit [facility] Physician [facility] [address] [place] [phone] Rosario Magaña CNP [address] [place] [address] [facility] Physician [facility] Start: 05-26-2023 Influenza vaccination Sequential Influenza Vaccine (#1) [facility] Start: 09-12-2022 PTRECHADUL, Provider: Aydee Whaley, Status: Pen, Time: 1:15 PM PTRECHADUL, Provider: Aydee Whaley, Status: Pen, Time: 1:15 PM [facility] Work Phone: Start: 09-05-2022 PTFUADULT4, Provider: Laila Nath, Status: Pen, Time: 1:15 PM PTFUADULT4, Provider: Laila Nath, Status: Pen, Time: 1:15 PM [facility] Work Phone: Start: 09-02-2022 PTFUADULT4, Provider: Laila Nath, Status: Pen, Time: 1:15 PM PTFUADULT4, Provider: Laila Nath, Status: Pen, Time: 1:15 PM [facility] Work Phone: Start: 08-29-2022 PTFUADULT4, Provider: Laila Nath, Status: Pen, Time: 11:30 AM PTFUADULT4, Provider: Laila Nath, Status: Pen, Time: 11:30 AM [facility] Work Phone: Start: 08-26-2022 PTFUADULT4, Provider: Laila Nath, Status: Pen, Time: 11:30 AM PTFUADULT4, Provider: Laila Nath, Status: Pen, Time: 11:30 AM [facility] Work Phone: Start: 08-10-2022 PTFUADULT4, Provider: Laila Nath, Status: Pen, Time: 2:00 PM PTFUADULT4, Provider: Laila Nath, Status: Pen, Time: 2:00 PM [facility] Work Phone: Start: 08-08-2022 PTRECHADUL, Provider: Aydee Whaley, Status: Pen, Time: 2:00 PM PTRECHADUL, Provider: Aydee Whaley, Status: Pen, Time: 2:00 PM [facility] Work Phone: Start: 08-03-2022 PTFUADULT4, Provider: Laila Nath, Status: Pen, Time: 1:15 PM PTFUADULT4, Provider: Laila Nath, Status: Pen, Time: 1:15 PM [facility] Work Phone: Start: 08-01-2022 PTFUADULT4, Provider: Laila Nath, Status: Pen, Time: 1:15 PM PTFUADULT4, Provider: Laila Nath, Status: Pen, Time: 1:15 PM [facility] Work Phone: Start: 07-11-2022 PTRECHADUL, Provider: Aydee Whaley, Status: Pen, Time: 2:30 PM PTRECHADUL, Provider: Aydee Whaley, Status: Pen, Time: 2:30 PM [facility] Work Phone: Start: 07-04-2022 PTRECHECKA, Provider: Aydee Whaley, Status: Pen, Time: 10:45 AM PTRECHECKA, Provider: Aydee Whaley, Status: Pen, Time: 10:45 AM [facility] Start: 06-29-2022 PTFUADULT4, Provider: Laila Nath, Status: Pen, Time: 10:45 AM PTFUADULT4, Provider: Laila Nath, Status: Pen, Time: 10:45 AM [facility] Start: 06-29-2022 PTFUADULT4, Provider: Anita Adamson, Status: Pen, Time: 10:45 AM PTFUADULT4, Provider: Anita Adamson, Status: Pen, Time: 10:45 AM [facility] Work Phone: Start: 06-27-2022 PTFUADULT4, Provider: Laila Nath, Status: Pen, Time: 10:45 AM PTFUADULT4, Provider: Laila Nath, Status: Pen, Time: 10:45 AM [facility] Work Phone: Start: 06-22-2022 PTFUADULT4, Provider: Laila Nath, Status: Pen, Time: 10:45 AM PTFUADULT4, Provider: Laila Nath, Status: Pen, Time: 10:45 AM [facility] Work Phone: Start: 06-20-2022 PTFUADULT4, Provider: Laila Nath, Status: Pen, Time: 10:45 AM PTFUADULT4, Provider: Laila Nath, Status: Pen, Time: 10:45 AM [facility] Work Phone: Start: 06-15-2022 PTFUADULT4, Provider: Anita Adamson, Status: Pen, Time: 10:45 AM PTFUADULT4, Provider: Anita Adamson, Status: Pen, Time: 10:45 AM [facility] Work Phone: Start: 06-13-2022 PTFUADULT4, Provider: Laila Nath, Status: Pen, Time: 10:45 AM PTFUADULT4, Provider: Laila Nath, Status: Pen, Time: 10:45 AM [facility] Work Phone: Start: 05-26-2022 Influenza vaccination Sequential Influenza Vaccine (Season Ended) [facility] Start: 04-05-2022 Diabetic foot examination Foot Exam [facility] Start: 05-26-2021 Influenza vaccination [facility] Start: 04-05-2021 End: 04-05-2021 Patient encounter procedure 04/05/2021 Office Visit Podiatry Sirisha Crews DPM [address] [place] [address] [phone] [facility] Start: 11-11-2020 COVID-19 Vaccine (2 - Moderna 2-dose series) COVID-19 Vaccine (2 - Moderna 2-dose series) [facility] Start: 11-11-2020 COVID-19 Vaccine (2 - Moderna series) COVID-19 Vaccine (2 - Moderna series) [facility] Start: 05-22-2016 Tetanus vaccination Tetanus: Every 10yrs [facility] Start: 2001 Fall risk assessment Falls Risk Assessment [facility] Start: 2001 Pneumococcal Vaccine: Age 65+ (1 of 1 - PPSV23) Pneumococcal Vaccine: Age 65+ (1 of 1 - PPSV23) [facility] Start: 1986 Administration of herpes zoster vaccine Zoster Vaccines (1 of 2) [facility] Start: 1948 COVID-19 Vaccine (1) COVID-19 Vaccine (1) [facility] Start: 1948 Depression screening using PHQ-9 (Patient Health Questionnaire 9) score [facility] Start: 1946 Diabetic foot examination Foot Exam [facility] Start: 1946 Glaucoma screening Diabetic Eye Exam [facility] Start: 1946 Microalbumin measurement, urine, quantitative Urine Microalbumin [facility] Start: 1946 Ophthalmic examination and evaluation Ophthalmology Exam [facility] Start: 1946 Urine screening for protein Urine Microalbumin [facility] Start: 1942 Pneumococcal Vaccine: Age 65+ (1 of 2 - PPSV23) Pneumococcal Vaccine: Age 65+ (1 of 2 - PPSV23) [facility] Start: 1939 History and physical examination, annual for health maintenance Wellness Visit [facility] Start: 1936 Hemoglobin A1c measurement A1C [facility] Start: 1936 Screening for osteoporosis Dexa Scan [facility] Start: 1936 Tetanus vaccination Tetanus: Every 10yrs [facility] Payers Date Payer Category Payer Medicare [employer] MANAGED [facility] AETNA MEDICARE PLAN (PPO) [id number] 2015-Present [id number] 2015 Medicare [id number] 2015 Medicare [id number] 2015 Private Health Insurance [id number] 1936 Unknown [id number] 2.16.840.1.965638.3.579.2.9 03 1936 Unknown [id number] 2.16.840.1.674373.3.579.2.9 03 1936 Unknown [id number] 2.16.840.1.706312.3.579.2.9 03 1936 Unknown [id number] 2.16.840.1.562556.3.579.2.9 03 1936 Unknown [id number] 2.16.840.1.087760.3.579.2.1 069 1936 Unknown [id number] 2.16.840.1.944507.3.579.2.1 069 1936 Unknown [id number] 2.16.840.1.812063.3.579.2.1 069 1936 Unknown [id number] 2.16.840.1.236429.3.579.2.1 069 1936 Unknown [id number] 2.16.840.1.621230.3.579.2.1 069 1936 Unknown [id number] 2.16.840.1.542949.3.579.2.1 069 1936 Unknown [id number] 2.16.840.1.788558.3.579.2.1 069 1936 Unknown [id number] 2.16.840.1.409507.3.579.2.1 069 1936 Unknown [id number] 2.16.840.1.020062.3.579.2.1 069 1936 Unknown [id number] 2.16.840.1.734403.3.579.2.1 069 1936 Unknown [id number] 2.16.840.1.680874.3.579.2.1 069 1936 Unknown [id number] 2.16.840.1.611307.3.579.2.1 069 1936 Unknown [id number] 2.16.840.1.002240.3.579.2.1 9 1936 Unknown [id number] 2.16.840.1.671177.3.579.2.1 9 1936 Unknown [id number] 2.16.840.1.960520.3.579.2.1 06 1936 Unknown [id number] 2.16.840.1.699387.3.579.2.1 9 1936 Unknown [id number] 2.16.840.1.286908.3.579.2.1 9 1936 Unknown [id number] 2.16.840.1.314134.3.579.2.1 9 1936 Unknown [id number] 2.16.840.1.990422.3.579.2.9 02 1936 Unknown [id number] 2.16.840.1.930326.3.579.2.9 03 1936 Unknown [id number] 2.16.840.1.510872.3.579.2.9 03 1936 Unknown [id number] 2.16.840.1.981023.3.579.2.9 03 Unknown [employer] Social History Date Type Detail Facility Start: 03-21-2021 Tobacco smoking status NHIS Unknown if ever smoked [facility] Start: 1935 Sex Assigned At Not on file [facility] Start: 04-05-2021 Tobacco smoking status NHIS Never sm oker [facility] Start: 04-05-2021 Tobacco use and exposure Never used [facility] Start: 04-05-2021 End: 07-29-2023 Alcohol intake Not Asked [facility] Start: 04-05-2021 Alcohol Comment once or twice a yr [facility] Exposure to SARS-CoV-2 (event) Not sure [facility] Start: 04-05-2021 End: 05-07-2023 Cigarette pack-years [facility] Start: 04-24-2023 End: 05-07-2023 Tobacco use panel [facility] Clinical Notes 04-05-2021 to 07-25-2023 Rosario Magaña CNP - 07/25/2023 10:30 AM EDTPatient InstructionsSirisha Crews DPM - 04/24/2023 10:30 AM Sirisha Quiñonez DPM - 04/05/2021 2:45 PM EDT Note [...] diminished. Protective sensation is diminished using the [place] Shellie monofilament Dermatologic: Nails 1 through 10 [...] risk foot care. documented in this encounter [facility] 04-24-2023 Instructions Sirisha Crews DPM - 04/24/2023 11:02 AM EDT Images from the original note were not included. Compression socks 8-15 mmHg Sunscreen 50 SPF Sirisha Crews DPM, MS Podiatric Physician & Surgeon documented in this encounter [facility] 04-24-2023 History of Presen t illness Narrative [...] diminished. Protective sensation is diminished using the [place] Shellie monofilament Dermatologic: Nails 1 through 10 [...] foot examination, type 2 DM, encounter for ([facility]) 2. Diabetic peripheral neuropathy (HCC) 3. OM (onychomycosis) 4. Onychodystrophy Imaging: None [...] Physician & Surgeon documented in this encounter [facility] 04-05-2021 History of Presen t illness Narrative [...] understand that she will have to pay [id number] for future debridement of toenails. All questions were answered to patient satisfaction. Patient understands to call with any questions or concerns. Follow-up in 3 months for nail care. Sirisha Crews DPM, MS Podiatric Physician & Surgeon documented in this encounter [facility] [...] you for this referral and please call [phone] with any questions or concerns. * Clinical Presentation: Stable and/or uncomplicated characteristics. * Level of Complexity: low * Problem List: activity limitations, ADLs/IADLs/self care skills, balance, decreased functional level, decreased knowledge of HEP, gait/locomotion, participation restrictions, strength and transfers. [facility] Work Phone: History of Present illness NarrativePatient identified by name and date of . Patient was able to progress with balance and strengthening this date with minimal rest breaks. She demonstrated decreased LOB this date and was able to decrease UE support. [facility] Work Phone: History of Present illness NarrativePatient identified by name and date of . Patient demonstrated increased LOB this date. She demonstrated increased fatigue and required several seated rest breaks. She required cues to decrease with external rotation with side stepping. [facility] Work Phone: History of Present illness Narrative* [...] with fair control and no UE assist. [facility] [employer] Work Phone: History of Present illness Narrative* Patient got dizzy with balance with nods and with side stepping today. * Needed CGA during gait back to clinic room from where side steps were completed. * Continues with mild sway with balance activities. * Difficulty with [facility] running man on the L > R. [facility] Work Phone: History of Present illness Narrative* Patient arrived very fatigued this date. * Completed bike and needed to take rest breaks during and after. * Patient needed many standing and seated rest breaks. * Standing PRE's were completed with gait belt in // bars. * Mod sway with static standing. * Held airex with standing exercises today d/t fatigue and decreased stability. [facility] [employer] Work Phone: History of Present illness Narrative* [...] weakness, was able to complete 1 set. [facility] [employer] Work Phone: History of Present illness Narrative* [...] very fatigued by end of session today. [facility] [employer] Work Phone: History of Present illness Narrative* [...] weakness, was able to complete 1 set. [facility] Work Phone: History of Present illness Narrative* Improved balance with standing PRE's on the airex but still does need to use both hands to steady self. * Used cane in clinic for stability d/t fatigue from exercises. [facility] Work Phone: History of Present illness Narrative* [...] HEP and symptom management at this time. [facility] Work Phone: Reason for visit Narrative* Initial Evaluation . Dx: E11.42. 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 Expl 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 Advance Directives and Living Will Documents on File Type Date Recorded 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 Expl 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 Advance Directives and Livin g Will 07/16/2023 11:49 AM Reason for Referral Specialty Diagnoses / Procedures Referred By Rhea t Referred To Contact Rehabilitation Diagnoses Diabetic polyneuropathy associated with type 2 diabetes mellitus (HCC) Edinson Casanova, DIRECTOR OF PLANNING [address] [place] [address] [facility] [address] [place] [address] Referral ID Status Reason Start Date Expiration Date V isits Requested Visits Authorized [id number] Pending Review 03/23/2022 03/23/2023 1 1 Additional Source Comments INFORMATION SOURCE (unrecogn ized section and content) DATE CREATED AUTHOR AUTHOR'S ORGANIZ ATION 06/26/2021 [facility] DATE CREATED AUTHOR AUTHOR'S ORGANIZ ATION 09/16/2022 [employer] DATE CREATED AUTHOR AUTHOR'S ORGANIZ ATION 01/09/2023 [facility] DATE CREATED AUTHOR AUTHOR'S ORGANIZ ATION 07/23/2023 [facility] DATE CREATED AUTHOR AUTHOR'S ORGANIZ ATION 10/26/2023 [facility] Reason for Visit (unrecogniz ed section and content) Reason Comments Nail Care Diabetic nail care. [place] the [place] 2[place]3 weeks ago. Patient complains of swelling when she flys. Reason Comments Nail Care Diabetic nail care. She has not checked her blood sugar. She has been having leg numbness. Care Teams (unrecognized sec tion and content) Vice President Network Relationship Specialty Start Date End Date Edinson Casanova CNP [address] [place] [address] PCP - General Nurse Practitioner 04/05/21 Vice President Network Relationship Specialty Start Date End Date Edinson Casanova CNP [address] [place] [address] PCP - General Nurse Practitioner 04/05/21 FOR [...] BE BASED ON THE PRIMARY CLINICAL RECORDS. [employer] [facility]. provides no warranty or guarantee of the accuracy or completeness of information in this document.
[2023-10-30 17:44] LABS: Absolute Neutrophil Count 4.3 X10^3/uL (2.0-7.7); Basophil% 1.4 % (0-1); Eosinophil# 0.45 X10^3/uL; Eosinophils% 6.5 % (0-5); Hematocrit 31.9 % (37-47); Hemoglobin 9.4 g/dL (12.0-15.0); Lymphocyte % 23.1 % (19-41); Mean Corp Hgb Conc 29.5 g/dL (32-36); Mean Corpuscular Hgb 29.7 pg (27.0-32.0); Mean Corpuscular Volume 100.9 fL (81-99); Mean Platelet Vol. 10.7 fl (6.2-12.0); Monocyte# 0.48 X10^3/uL; Monocyte% 6.9 % (0-10); NRBC Flagged by Analyzer 0 % (0-5); Neutrophil # 4.28 X10^3/uL (2.7-7.7); Neutrophil % 61.8 % (47-70); Platelet Count 299 K/mm3 (150-450); RBC Distribution Width CV 14.3 % (11.6-14.6); RBC Distribution Width SD 52.6 fl (35.1-43.9); Red Blood Count 3.16 M/mm3 (4.2-5.4); White Blood Count 6.9 K/mm3 (4.4-11.0)
[2023-10-30 17:51] LABS: Color, Urine Yellow (Yellow); Glucose, Dipstick Normal (Normal); Ketone-Dipstick Negative (Negative); Leukocyte Esterase-Dipstick 500 /ul (Negative); Nitrite-Dipstick Negative (Negative); Occult Blood-Urine Negative /ul (Negative); Protein-Dipstick Negative (Negative); Specific Gravity, Urine 1.015 (1.002-1.030); Urine Bilirubin Dipstick Negative (Negative); Urine Clarity Clear (Clear); Urine Urobilinogen Normal (Normal)
[2023-10-30 18:05] LABS: Anion Gap 6 (5-15); BUN 31 mg/dL (7-18); BUN/Creat Ratio 13.2 RATIO (10-20); Calcium,Total 9.1 mg/dL (8.5-10.1); Chloride 112 mmol/L (98-107); Creatinine, Serum 2.35 mg/dL (0.55-1.02); EST Glomerular Filtration Rate 21 mL/min (>60); Est Glom Filt Rate - Afr Amer 25 mL/min (>60); Glucose 136 mg/dL (74-106); Potassium 5.3 mmol/L (3.5-5.1); Sodium Level 142 mmol/L (136-145)
== END | disposition home or self-care (01) ==
LOC: BFHLAB 14:28
PROVIDERS: PCP Family Medicine; Visit Provider Family Medicine
DX: N18.4 Chronic kidney disease, stage 4 (severe) (principal); D64.9 Anemia, unspecified
CPT/HCPCS: 36415; 80048; 81002; 85025

== ENCOUNTER → 2024-02-26 | Outpatient (CLI) | payer MEDICARE, SELFPAY ==
[2024-02-26 12:58] LABS: Absolute Lymphocyte Count 1.11 X10^3/uL (0.83-4.51); Absolute Neutrophil Count 3.7 X10^3/uL (2.0-7.7); Basophil# 0.07 X10^3/uL; Basophil% 1.2 % (0-1); Eosinophil# 0.37 X10^3/uL; Eosinophils% 6.5 % (0-5); Hematocrit 30.5 % (37-47); Hemoglobin 9.2 g/dL (12.0-15.0); Lymphocyte # 1.11 X10^3/ul (0.83-4.51); Lymphocyte % 19.4 % (19-41); Mean Corp Hgb Conc 30.2 g/dL (32-36); Mean Corpuscular Hgb 29.9 pg (27.0-32.0); Mean Platelet Vol. 10.5 fl (6.2-12.0); Monocyte# 0.47 X10^3/uL; Monocyte% 8.2 % (0-10); NRBC Flagged by Analyzer 0 % (0-5); Neutrophil # 3.67 X10^3/uL (2.7-7.7); Neutrophil % 64.3 % (47-70); Platelet Count 251 K/mm3 (150-450); RBC Distribution Width CV 14.7 % (11.6-14.6); RBC Distribution Width SD 53.1 fl (35.1-43.9); Red Blood Count 3.08 M/mm3 (4.2-5.4); White Blood Count 5.7 K/mm3 (4.4-11.0)
[2024-02-26 13:35] LABS: BNP,B-Type NATRIURETIC PEPTIDE 72.2 pg/mL (0-100)
[2024-02-26 14:16] LABS: ALB/GLOB Ratio 1.2 RATIO (0.9-2.4); AST(SGOT) 25 U/L (15-37); Alanine Aminotransfer ALT/SGPT 26 U/L (13-56); Albumin, Serum 3.6 g/dL (3.2-5.0); Alkaline Phosphatase 117 U/L (45-117); Anion Gap 7 (5-15); BUN 48 mg/dL (7-18); Calcium,Total 9.1 mg/dL (8.5-10.1); Chloride 115 mmol/L (98-107); EST Glomerular Filtration Rate 20 mL/min (>60); Est Glom Filt Rate - Afr Amer 25 mL/min (>60); Globulin 2.9 g/dL (2.2-4.2); Glucose 88 mg/dL (74-106); Potassium 5.8 mmol/L (3.5-5.1); Protein, Total 6.5 g/dL (6.4-8.2); Sodium Level 141 mmol/L (136-145)
[2024-02-28 05:07] LABS: Fructosamine 259 umol/L (0-285)
== END | disposition home or self-care (01) ==
LOC: LAB.FUTURE 10:31 → BFHLAB 02-27 13:19
PROVIDERS: PCP Family Medicine; Visit Provider Family Medicine
DX: E11.29 Type 2 diabetes mellitus with other diabetic kidney complication (principal); N18.4 Chronic kidney disease, stage 4 (severe); E11.22 Type 2 diabetes mellitus with diabetic chronic kidney disease; D63.1 Anemia in chronic kidney disease; I12.9 Hypertensive chronic kidney disease with stage 1 through stage 4 chronic kidney disease, or unspecified chronic kidney disease; R06.00 Dyspnea, unspecified
CPT/HCPCS: 36415; 80053; 82985; 83880; 85025

== ENCOUNTER → 2024-03-04 | Outpatient (CLI) | payer MEDICARE, SELFPAY ==
[2024-03-04 16:49] LABS: Anion Gap 6 (5-15); BUN 37 mg/dL (7-18); BUN/Creat Ratio 17.4 RATIO (10-20); Chloride 112 mmol/L (98-107); Creatinine, Serum 2.13 mg/dL (0.55-1.02); EST Glomerular Filtration Rate 23 mL/min (>60); Est Glom Filt Rate - Afr Amer 28 mL/min (>60); Glucose 99 mg/dL (74-106); Potassium 4.8 mmol/L (3.5-5.1); Sodium Level 139 mmol/L (136-145)
== END | disposition home or self-care (01) ==
PROVIDERS: PCP Family Medicine; Referring Provider Family Medicine; Visit Provider Family Medicine
DX: N18.4 Chronic kidney disease, stage 4 (severe) (principal)
CPT/HCPCS: 36415; 80048

== ENCOUNTER → 2024-03-18 | Outpatient (CLI) | payer MEDICARE, SELFPAY ==
[2024-03-18 12:58] LABS: Anion Gap 6 (5-15); BUN 36 mg/dL (7-18); BUN/Creat Ratio 18.8 RATIO (10-20); Calcium,Total 9.1 mg/dL (8.5-10.1); Chloride 112 mmol/L (98-107); Creatinine, Serum 1.92 mg/dL (0.55-1.02); EST Glomerular Filtration Rate 26 mL/min (>60); Est Glom Filt Rate - Afr Amer 32 mL/min (>60); Glucose 94 mg/dL (74-106); Sodium Level 141 mmol/L (136-145)
== END | disposition home or self-care (01) ==
LOC: BFHLAB 10:57
PROVIDERS: PCP Family Medicine; Referring Provider Family Medicine; Visit Provider Family Medicine
DX: N18.4 Chronic kidney disease, stage 4 (severe) (principal)
CPT/HCPCS: 36415; 80048

== ENCOUNTER → 2024-07-08 | Outpatient (CLI) | payer MEDICARE, SELFPAY ==
[2024-07-08 15:27] LABS: Absolute Lymphocyte Count 1.17 X10^3/uL (0.83-4.51); Absolute Neutrophil Count 2.7 X10^3/uL (2.0-7.7); Basophil# 0.05 X10^3/uL; Basophil% 1.1 % (0-1); Eosinophil# 0.14 X10^3/uL; Eosinophils% 3.1 % (0-5); Hematocrit 33.1 % (37-47); Hemoglobin 10.1 g/dL (12.0-15.0); Lymphocyte # 1.17 X10^3/ul (0.83-4.51); Lymphocyte % 26.2 % (19-41); Mean Corp Hgb Conc 30.5 g/dL (32-36); Mean Corpuscular Hgb 29.5 pg (27.0-32.0); Mean Corpuscular Volume 96.8 fL (81-99); Mean Platelet Vol. 10.2 fl (6.2-12.0); Monocyte# 0.37 X10^3/uL; Monocyte% 8.3 % (0-10); NRBC Flagged by Analyzer 0 % (0-5); Neutrophil # 2.73 X10^3/uL (2.7-7.7); Neutrophil % 61.1 % (47-70); Platelet Count 273 K/mm3 (150-450); RBC Distribution Width CV 14.6 % (11.6-14.6); RBC Distribution Width SD 51.7 fl (35.1-43.9); Red Blood Count 3.42 M/mm3 (4.2-5.4); White Blood Count 4.5 K/mm3 (4.4-11.0)
[2024-07-08 15:47] LABS: Anion Gap 8 (5-15); BUN 20 mg/dL (7-18); BUN/Creat Ratio 10.3 RATIO (10-20); Calcium,Total 9.2 mg/dL (8.5-10.1); Chloride 112 mmol/L (98-107); Creatinine, Serum 1.94 mg/dL (0.55-1.02); EST Glomerular Filtration Rate 26 mL/min (>60); Est Glom Filt Rate - Afr Amer 31 mL/min (>60); Glucose 98 mg/dL (74-106); Iron 66 ug/dL (50-170); Phosphorus 3.5 mg/dL (2.5-4.9); Potassium 4.5 mmol/L (3.5-5.1); Sodium Level 144 mmol/L (136-145)
[2024-07-08 17:46] LABS: Hemoglobin A1c 5.8 % (3.8-5.6)
== END | disposition home or self-care (01) ==
LOC: BFHLAB 10:59
PROVIDERS: PCP Family Medicine; Visit Provider Family Medicine
DX: E11.29 Type 2 diabetes mellitus with other diabetic kidney complication (principal); N18.4 Chronic kidney disease, stage 4 (severe); E11.22 Type 2 diabetes mellitus with diabetic chronic kidney disease; I12.9 Hypertensive chronic kidney disease with stage 1 through stage 4 chronic kidney disease, or unspecified chronic kidney disease; D64.9 Anemia, unspecified
CPT/HCPCS: 80048; 83036; 83540; 84100; 85025

== ENCOUNTER → 2024-08-15 | Outpatient (CLI) | payer MEDICARE, SELFPAY | END | disposition home or self-care (01) | LOC: LABSPEC 08:47 | PROVIDERS: PCP Family Medicine; Referring Provider Family Medicine; Visit Provider Family Medicine | DX: R82.90 Unspecified abnormal findings in urine (principal) | CPT/HCPCS: 87077; 87086; 87088; 87186 ==

== ENCOUNTER → 2024-10-01 | Outpatient (CLI) | payer MEDICARE, SELFPAY | END | disposition home or self-care (01) | PROVIDERS: PCP Family Medicine; Visit Provider Family Medicine | DX: N39.0 Urinary tract infection, site not specified (principal) | CPT/HCPCS: 87086; 87088 ==

== ENCOUNTER → 2025-01-28 | Outpatient (CLI) | payer MEDICARE, SELFPAY ==
[2025-01-28 17:50] LABS: Absolute Lymphocyte Count 1.63 X10^3/uL (0.83-4.51); Absolute Neutrophil Count 4.1 X10^3/uL (2.0-7.7); Basophil# 0.07 X10^3/uL; Basophil% 1.1 % (0-1); Eosinophil# 0.13 X10^3/uL; Hematocrit 35.9 % (37-47); Hemoglobin 11.2 g/dL (12.0-15.0); Lymphocyte # 1.63 X10^3/ul (0.83-4.51); Lymphocyte % 25.2 % (19-41); Mean Corp Hgb Conc 31.2 g/dL (32-36); Mean Corpuscular Hgb 29.3 pg (27.0-32.0); Monocyte# 0.52 X10^3/uL; NRBC Flagged by Analyzer 0 % (0-5); Neutrophil % 63.5 % (47-70); Platelet Count 311 K/mm3 (150-450); RBC Distribution Width CV 15.2 % (11.6-14.6); Red Blood Count 3.82 M/mm3 (4.2-5.4); White Blood Count 6.5 K/mm3 (4.4-11.0)
[2025-01-28 19:08] LABS: ALB/GLOB Ratio 1.5 RATIO (0.9-2.4); AST(SGOT) 24 U/L (<=31); Alanine Aminotransfer ALT/SGPT 19 U/L (<=34); Albumin, Serum 4.2 g/dL (3.4-4.8); Alkaline Phosphatase 132 U/L (35-104); Anion Gap 13 (5-15); BUN 27 mg/dL (4-19); BUN/Creat Ratio 11.9 RATIO (10-20); Calcium,Total 9.5 mg/dL (7.6-11.0); Carbon Dioxide 22.2 mmol/L (21.0-32.0); Chloride 105 mmol/L (98-108); Creatinine, Serum 2.26 mg/dL (0.70-1.20); EST Glomerular Filtration Rate 20 (>60); Globulin 2.8 g/dL (2.2-4.2); Glucose 116 mg/dL (70-99); Potassium 4.4 mmol/L (3.3-5.1); Sodium Level 140 mmol/L (133-145); Total Bilirubin 0.43 mg/dL (0.00-1.30)
[2025-01-28 20:56] LABS: Color, Urine Straw (Yellow); Glucose, Dipstick Normal (Normal); Ketone-Dipstick Negative (Negative); Leukocyte Esterase-Dipstick 500 /ul (Negative); Nitrite-Dipstick Negative (Negative); Occult Blood-Urine 150 /ul (Negative); Protein-Dipstick 100 mg/dl (Negative); Specific Gravity, Urine 1.015 (1.002-1.030); Urine Bilirubin Dipstick Negative (Negative); Urine Clarity Cloudy (Clear); Urine Urobilinogen Normal (Normal)
== END | disposition home or self-care (01) ==
LOC: MTLAB 14:29
PROVIDERS: PCP Family Medicine; Referring Provider Family Medicine; Visit Provider Family Medicine
DX: I12.9 Hypertensive chronic kidney disease with stage 1 through stage 4 chronic kidney disease, or unspecified chronic kidney disease (principal); N18.4 Chronic kidney disease, stage 4 (severe); R82.90 Unspecified abnormal findings in urine
CPT/HCPCS: 36415; 80053; 81002; 85025; 87086; 87088

== ENCOUNTER → 2025-05-30 | Outpatient (CLI) | payer MEDICARE, SELFPAY ==
[2025-05-30 15:31] LABS: Hematocrit 33.4 % (37-47); Hemoglobin 10.4 g/dL (12.0-15.0); Immature Granulocytes Count 0.010 X10^3/uL (0.0-0.0); Mean Corp Hgb Conc 31.1 g/dL (32-36); Mean Corpuscular Volume 95.7 fL (81-99); Mean Platelet Vol. 9.8 fl (6.2-12.0); NRBC Flagged by Analyzer 0 % (0-5); Platelet Count 234 K/mm3 (150-450); RBC Distribution Width CV 15.3 % (11.6-14.6); RBC Distribution Width SD 54.3 fl (35.1-43.9); Red Blood Count 3.49 M/mm3 (4.2-5.4); White Blood Count 4.8 K/mm3 (4.4-11.0)
[2025-05-30 15:45] LABS: PTHIN 104 pg/mL (11-61)
[2025-05-30 16:04] LABS: AST(SGOT) 28 U/L (<=31); Alanine Aminotransfer ALT/SGPT 31 U/L (<=34); Albumin, Serum 3.9 g/dL (3.4-4.8); Alkaline Phosphatase 110 U/L (35-104); Anion Gap 11 (5-15); BUN 20 mg/dL (4-19); BUN/Creat Ratio 10.9 RATIO (10-20); Calcium,Total 9.1 mg/dL (7.6-11.0); Carbon Dioxide 22.8 mmol/L (21.0-32.0); Chloride 107 mmol/L (98-108); Cholesterol 116 mg/dL (<=200); Ferritin 74 ng/mL (22-378); Globulin 2.5 g/dL (2.2-4.2); Glucose 109 mg/dL (70-99); Low Density Lipoprotein Calc. 42 mg/dL; Potassium 4.7 mmol/L (3.3-5.1); Triglycerides 135 mg/dL; Very Low Density Lipoprotein 27 mg/dL (5-40); Vitamin B12 1108 pg/mL (180-914); cholesterol:hdl ratio screen 2.47
[2025-05-30 16:33] LABS: Iron 59 ug/dL (50-170)
== END | disposition home or self-care (01) ==
PROVIDERS: PCP Family Medicine; Visit Provider Family Medicine
DX: I12.9 Hypertensive chronic kidney disease with stage 1 through stage 4 chronic kidney disease, or unspecified chronic kidney disease (principal); N18.4 Chronic kidney disease, stage 4 (severe); E78.5 Hyperlipidemia, unspecified; D64.9 Anemia, unspecified; G62.9 Polyneuropathy, unspecified
CPT/HCPCS: 36415; 80053; 80061; 82607; 82728; 83036; 83540; 83970; 84443; 85025; 85652